=== PATIENT | female | born 1985 | race American Indian/Alaskan Native ===

== ENCOUNTER 2016-12-26 21:53 | Emergency (ER) | payer MEDICAID ==
[2016-12-26] MEDS ORDERED: DECADRON IV ONE (22:40)
[2016-12-26] MEDS ORDERED: BENADRYL IM ONE (22:40)
[2016-12-26] MEDS ORDERED: DECADRON ONE (22:42)
[2016-12-26] MEDS ORDERED: BENADRYL ONE (22:42)
[2016-12-26 22:52] VITALS: BP 120/82
[2016-12-26 23:19] LABS: Basophils % (Auto) 0.8 % (0.0-1.8); Eosinophils % (Auto) 1.8 % (0.0-4.3); Hematocrit 35.3 % (30.3-42.9); Mean Corpuscular HGB Conc 34 % (30-34); Mean Corpuscular Hemoglobin 31 pg (28-32); Mean Corpuscular Volume 91 fl (79-97); Platelet Count 228 K/mm3 (140-440); Red Blood Count 3.88 M/mm3 (3.65-5.03); Red Cell Distribution Width 13.3 % (13.2-15.2)
[2016-12-26 23:26] LABS: Urine Drugs of Abuse Note Disclamer
[2016-12-26 23:38] LABS: Anion Gap 14 mmol/L; BUN/Creatinine Ratio 38; Blood Urea Nitrogen 15 mg/dL (7-17); Calcium 8.7 mg/dL (8.4-10.2); Carbon Dioxide 26 mmol/L (22-30); Chloride 102.2 mmol/L (98-107); Glucose 103 mg/dL (65-100); Potassium 3.6 mmol/L (3.6-5.0); Sodium 139 mmol/L (137-145)
[2016-12-27 00:03] LABS: Bilirubin,Urine NEG (Negative); Blood,Urine SM (Negative); Ketones,Urine NEG (Negative); Leukocyte Esterase,Urine TR (Negative); Mucus,Urine 2+ /HPF; Nitrite,Urine NEG (Negative); Protein,Urine <15 mg/dL mg/dL (Negative)
== END 2016-12-26 22:52 | disposition left against medical advice (07) ==
LOC: ED 21:53
DX: G25.2 Other specified forms of tremor (principal); M24.9 Joint derangement, unspecified; Z53.21 Procedure and treatment not carried out due to patient leaving prior to being seen by health care provider
CPT/HCPCS: 36415; 80048; 80307; 81001; 84439; 84443; 85025; 96372; 96374; G0480; J1100; J1200; 80320

== ENCOUNTER 2019-04-11 00:45 | Observation (INO) | payer SELFPAY ==
--- NOTE | 2019-04-11 01:06 | Cat Scan Report ---
CT head without contrast INDICATION : MAIN: STROKE ALERT. LT SIDED WEAKNESS. SLURRED SPEECH. [phone]. Slurred speech, le ft-sided weakness TECHNIQUE: Axial imaging performed from the skull apex through the skull base without the use of con trast. All CT scans at this location are performed using CT dose reduction for ALARA by means of aut omated exposure control. COMPARISON: None FINDINGS: Parenchyma: No acute intracranial hemorrhage or parenchymal abnormality. Ventricles: Ventricles are normal in size and appear symmetric. Soft tissues: Soft tissues including the orbits appear normal. Bones: No acute osseous abnormality. Sinuses: Sinuses and mastoid air cells are clear. IMPRESSION: No acute abnormality. COMMUNICATION: Time of Communication (TESTER/LIFT TRUCKER/CDT): 12:01 AM Licensed Practitioner Receiving Report: Dr. Somers Signer Name: Gopal Mednia MD Signed: 04/11/2019 1:01 AM Workstation Name: [id number]
--- NOTE | 2019-04-11 01:17 | Emergency Department Report ---
HPI - General Time Seen by Provider: 04/11/19 00:47 - HPI HPI: 33-year-old -Algerian female presents to the emergency department via EMS as a code stroke. The patient has been having left-sided head, neck, arm and leg sharpshooting pains since about 2 PM this afternoon. She also complains of some numbness and weakness along this left side. She woke up this morning with a change in her voice that she says makes it hard to talk. Her significant other is at bedside as well and says that she had a left-sided facial droop earlier that he took a picture of. She has a past mental history of asthma and some type of nerve problem or disorder that she says is undiagnosed. She has a surgical history of tubal ligation as well as some type of pelvic procedure regarding the vessels in her pelvis due to "pelvic congestion." ED Past Medical Hx - Past Medical History Hx Hypertension: No Hx CVA: No Hx Heart Attack/AMI: No Hx Congestive Heart Failure: No Hx Diabetes: No Hx Deep Vein Thrombosis: No Hx Pulmonary Embolism: No Hx GERD: No Hx Liver Disease: No Hx Renal Disease: No Hx Sickle Cell Disease: No Hx Arthritis: No Hx Headaches / Migraines: No Hx Seizures: No Hx Kidney Stones: No Hx Psychiatric Treatment: No Hx Asthma: Yes Hx COPD: No Hx Tuberculosis: No Hx Dementia: No Hx HIV: No Additional medical history: "neuro problem" unsure of diagnosis - Surgical History Hx Coronary Stent: No Hx Open Heart Surgery: No Hx Pacemaker: No Hx Internal Defibrillator: No Hx Cholecystectomy: No Hx Appendectomy: No Hx Breast Surgery: No Additional Surgical History: 2011, tubal ligation - Social History Smoking Status: Never Smoker Substance Use Type: None - Medications Home Medications: Home Medications Medication Instructions Recorded Confirmed Last Taken Type Albuterol Sulfate [Proventil HFA] 1 - 2 puff IH Q4H PRN #1 hfa.aer.ad 07/04/14 07/15/15 Unknown Rx ED Review of Systems ROS: Stated complaint: POSS CVA Other details as noted in HPI Comment: All other systems reviewed and negative Constitutional: weakness. denies: chills, fever Eyes: denies: eye pain, vision change ENT: denies: ear pain, throat pain Respiratory: denies: cough, shortness of breath Cardiovascular: denies: chest pain, palpitations Gastrointestinal: denies: abdominal pain, vomiting Genitourinary: denies: dysuria, discharge Musculoskeletal: myalgia. denies: back pain, joint swelling Skin: denies: rash, lesions Neurological: headache, weakness, numbness Physical Exam - Physical Exam Physical Exam: GENERAL: The patient is well-developed well-nourished. HEENT: Normocephalic. Atraumatic. Patient has moist mucous membranes. EYES: Extraocular motions are intact. Pupils equal and reactive to light bilaterally. NECK: Supple. Trachea is midline. CHEST/LUNGS: Clear to auscultation. There is no respiratory distress noted. HEART/CARDIOVASCULAR: Regular. There is no tachycardia. There is no murmur. ABDOMEN: Abdomen is soft, nontender. Patient has normal bowel sounds. There is no abdominal distention. SKIN:Skin is warm and dry. . NEURO: The patient is awake, alert, and oriented. The patient is cooperative. The patient has no focal neurologic deficits. Patient has a weak raspy voice but otherwise there is no aphasia or dysarthria. Cranial nerves II through XII grossly intact. MUSCULOSKELETAL: There is no tenderness or deformity. There is no limitation range of motion. There is no evidence of acute injury. ED Course - Consultations Consultation #1: 04/11/19 03:49 This patient was seen by the telemedicine neurologist, Dr. De La O, as soon as she returned from having her CT head without contrast done. The neurologist gave her a NIH stroke scale of [address] angiography of the head and neck to be done. His further recommendations also include admission for MRI, neuro checks and further stroke workup. ED Medical Decision Making - Lab Data Result diagrams: 04/11/19 01:19 04/11/19 01:19 - EKG Data -: EKG Interpreted by Mi EKG shows normal: sinus rhythm, axis, intervals, QRS complexes, ST-T waves Rate: normal - EKG Data When compared to previous EKG there are: previous EKG unavailable Interpretation: normal EKG - Radiology Data Radiology results: report reviewed CT head without contrast INDICATION : MAIN: STROKE ALERT. LT SIDED WEAKNESS. SLURRED SPEECH. [phone]. Slurred speech, left-sided weakness TECHNIQUE: Axial imaging performed from the skull apex through the skull base without the use of contrast. All CT scans at this location are performed using CT dose reduction for ALARA by means of automated exposure control. COMPARISON: None FINDINGS: Parenchyma: No acute intracranial hemorrhage or parenchymal abnormality. Ventricles: Ventricles are normal in size and appear symmetric. Soft tissues: Soft tissues including the orbits appear normal. Bones: No acute osseous abnormality. Sinuses: Sinuses and mastoid air cells are clear. IMPRESSION: No acute abnormality. CTA head with and without IV contrast. CLINICAL HISTORY: Left-sided weakness. Technique: Multiple contiguous postcontrast CT images of the head were obtained at 0.63 mm intervals.3 plane MIP reconstructions were obtained. Precontrast localizing images were also performed. CT scans at this location are performed using the CT dose reduction for ALARA by means of automated exposure control. FINDINGS: No previous exams are available for comparison. The distal internal c arotid arteries demonstrate appropriate caliber without significant focal stenosis by NASCET criteria. The vertebral basilar system is unremarkable. The proximal cerebral arteries demonstrate appropriate caliber without evidence of large vessel occlusion. There is no clear CTA evidence of intracranial aneurysm. The dural venous sinuses opacify with contrast. IMPRESSION: There is no CTA evidence of significant stenosis involving intracranial vessels. CTA neck with and without contrast CLINICAL HISTORY: Left-sided weakness. Technique: Multiple contiguous postcontrast axial CT images of the neck were obtained at 0.63 mm intervals. 3 plane MIP reconstructions were produced. Precontrast localizing images were also performed. All CT scans at this location are performed using the CT dose re duction for ALARA by means of automated exposure control. FINDINGS: There is no significant stenosis involving carotid arteries by NASCET criteria. The carotid bifurcations are widely patent. Contrast is noted within the cervical venous plexus. However, the vertebral arteries also demonstrate appropriate caliber without significant focal narrowing. The mendenhall of carotid and vertebral arteries demonstrate fairly smooth contour without CT evidence of dissection. There is common origin of the brachiocephalic and left common carotid arteries which represents a developmental variant. The arch vessels are otherwise unremarkable. IMPRESSION: There is no CTA evidence of significant stenosis involving carotid or vertebral arteries by NASCET criteria. - Medical Decision Making This patient presents as a code stroke as she was complaining of headache with some left-sided body pain, numbness, previous slurred speech and facial asymmetry. However, at the time of my examination she does not have any obvious deficits. Upon arrival she immediately had a CT scan of the head without contrast does not show any bleed, shift, mass, ischemia, or any other acute process. Seen by telemedicine neurology who recommended CT angiography of the head and neck followed by admission for MRI and further stroke workup, unless the angiography studies show signs of a large vessel occlusion. Patient was given a NIH stroke scale of 0. CT angiography of the head and neck does not show any thrombus, occlusion, or any other acute process. Patient's labs have been unremarkable CBC, metabolic panel, TSH, blood alcohol level. Vital signs stable throughout her ED course. The patient will be admitted to the hospital for further evaluation and treatment and was accepted for admission by the hospitalist, Dr. Puckett. - Differential Diagnosis CVA, TIA, MS, complex migraine Critical Care Time: No Critical care attestation.: If time is entered above; I have spent that time in minutes in the direct care of this critically ill patient, excluding procedure time. ED Disposition Clinical Impression: Stroke-like symptoms Headache Qualifiers: Headache type: unspecified Headache chronicity pattern: unspecified pattern Intractability: not intractable Qualified Code(s): R51 - Headache Disposition: OP ADMIT IP TO THIS HOSP Is pt being admited?: Yes Condition: Fair Time of Disposition: 03:55
[2019-04-11 01:27] LABS: Basophils # (Auto) 0.1 K/mm3 (0.0-0.1); Basophils % (Auto) 1.3 % (0.0-1.8); Eosinophils # (Auto) 0.2 K/mm3 (0.0-0.4); Eosinophils % (Auto) 2.8 % (0.0-4.3); Hematocrit 33.5 % (30.3-42.9); Hemoglobin 11.3 gm/dl (10.1-14.3); Lymphocytes # (Auto) 2.2 K/mm3 (1.2-5.4); Lymphocytes % (Auto) 37.1 % (13.4-35.0); Mean Corpuscular HGB Conc 34 % (30-34); Mean Corpuscular Volume 89 fl (79-97); Monocytes # (Auto) 0.5 K/mm3 (0.0-0.8); Monocytes % (Auto) 8.7 % (0.0-7.3); Platelet Count 279 K/mm3 (140-440); Red Blood Count 3.76 M/mm3 (3.65-5.03)
[2019-04-11 01:35] LABS: BUN/Creatinine Ratio 16; Blood Urea Nitrogen 8 mg/dL (7-17); Calcium 9.2 mg/dL (8.4-10.2); Hemolysis Index 0
--- NOTE | 2019-04-11 01:38 | Emergency Department Report ---
HPI - General Chief Complaint: Neuro Symptoms/Deficit Time Seen by Provider: 04/11/19 00:47 - HPI HPI: [facility] Date of Service: 04/11/2019 00:23:28 Impression: RO Acute Ischemic Stroke Comments: The pateint was last normal at 1400, she started having excruciating and shooting pain down her left side. She is allergic to oxycodone she states. Mechanism of Stroke: Possible Thromboembolic Metrics: Last Known Well: 04/11/2019 14:00:00 [facility] Notification Time: 04/11/2019 00:22:57 Arrival Time: 04/11/2019 00:23:28 Stamp Time: 04/11/2019 00:23:28 Time First Login Attempt: 04/11/2019 00:30:00 Video Start Time: 04/11/2019 00:30:00 Symptoms: pain shot down her neck all the way down on left side, to middle finger. She could not speak NIHSS Start Assessment Time: 04/11/2019 00:53:56 Patient is not a candidate for tPA. Patient was not deemed candidate for tPA thrombolytics because of Last Well Known Above 4.5 Hours. Video End Time: 04/11/2019 01:39:44 CT head showed no acute hemorrhage or acute core infarct. Presentation is not suggestive of Large Vessel Occlusive disease. Advanced imaging was reviewed, No Indication of Large Vessel Occlusive Thrombus. Radiologist was called back for review of advanced imaging on 04/11/2019 01:39:45 ED Physician notified of diagnostic impression and management plan on 04/11/2019 00:58:25 Our recommendations are outlined below. Recommendations: Activate Stroke Protocol Admission/Order Set Stroke/Telemetry Floor Neuro Checks Bedside Swallow Eval DVT Prophylaxis IV Fluids, Normal Saline Head of Bed Below 30 Degrees Euglycemia and Avoid Hyperthermia (PRN Acetaminophen) Hold Antithrombotics for Now Recommended Scan: MRI Head with and Without Contrast Lipid Panel to Be Obtained, if Not Done in the Last Three Months Therapies: Physical Therapy, Occupational Therapy, Speech Therapy Assessment When Applicable Dysphaghia Screen: Swallow Evaluation, Bedside NPO Until Swallow Evaluation History of Present Illness: Patient is a 33 year old Female. Patient was brought by EMS for symptoms of pain shot down her neck all the way down on left side, to middle finger. She could not speak She could not speak, and she could not open her eyes. She took, nortriptyline,@ 937 and everything went to normal, then 11:00 CT head showed no acute hemorrhage or acute core infarct. Last seen normal was beyond 4.5 hours of presentation. There is no history of hemorrhagic complications or intracranial hemorrhage. There is no history of Recent Anticoagulants. There is no history of recent major surgery. There is no history of recent stroke. Examination: 1A: Level of Consciousness - Alert; keenly responsive + 0 1B: Ask Month and Age - Both Questions Right + 0 1C: Blink Eyes & Squeeze Hands - Performs Both Tasks + 0 2: Test Horizontal Extraocular Movements - Normal + 0 3: Test Visual Santos - No Visual Loss + 0 4: Test Facial Palsy (Use Grimace if Obtunded) - Normal symmetry + 0 5A: Test Left Arm Motor Drift - No Drift for 10 Seconds + 0 5B: Test Right Arm Motor Drift - No Drift for 10 Seconds + 0 6A: Test Left Leg Motor Drift - No Drift for 5 Seconds + 0 6B: Test Right Leg Motor Drift - No Drift for 5 Seconds + 0 7: Test Limb Ataxia (FNF/Heel-Palm) - No Ataxia + 0 8: Test Sensation - Normal; No sensory loss + 0 9: Test Language/Aphasia - Normal; No aphasia + 0 10: Test Dysarthria - Normal + 0 11: Test Extinction/Inattention - No abnormality + 0 NIHSS Score: 0 Patient was informed the Neurology Consult would happen via TeleHealth consult by way of interactive audio and video telecommunications and consented to receiving care in this manner. Due to the immediate potential for life-threatening deterioration due to underlying acute neurologic illness, I spent 35 minutes providing critical care. This time includes time for face to face visit via telemedicine, review of medical records, imaging studies and discussion of findings with providers, the patient and/or family. Dr Candido De La O [facility] Case [id number] ED Past Medical Hx - Past Medical History Hx Hypertension: No Hx CVA: No Hx Heart Attack/AMI: No Hx Congestive Heart Failure: No Hx Diabetes: No Hx Deep Vein Thrombosis: No Hx Pulmonary Embolism: No Hx GERD: No Hx Liver Disease: No Hx Renal Disease: No Hx Sickle Cell Disease: No Hx Arthritis: No Hx Headaches / Migraines: No Hx Seizures: No Hx Kidney Stones: No Hx Psychiatric Treatment: No Hx Asthma: Yes Hx COPD: No Hx Tuberculosis: No Hx Dementia: No Hx HIV: No Additional medical history: "neuro problem" unsure of diagnosis - Surgical History Hx Coronary Stent: No Hx Open Heart Surgery: No Hx Pacemaker: No Hx Internal Defibrillator: No Hx Cholecystectomy: No Hx Appendectomy: No Hx Breast Surgery: No Additional Surgical History: 2010, tubal ligation - Social History Smoking Status: Never Smoker Substance Use Type: None - Medications Home Medications: Home Medications Medication Instructions Recorded Confirmed Last Taken Type Albuterol Sulfate [Proventil HFA] 1 - 2 puff IH Q4H PRN #1 hfa.aer.ad 07/04/14 07/15/15 Unknown Rx ED Review of Systems ROS: Stated complaint: POSS CVA Other details as noted in HPI Constitutional: weakness. denies: chills, fever Eyes: denies: eye pain, vision change ENT: denies: ear pain, throat pain Respiratory: denies: cough, shortness of breath Cardiovascular: denies: chest pain, palpitations Gastrointestinal: denies: abdominal pain, vomiting Genitourinary: denies: dysuria, discharge Musculoskeletal: myalgia. denies: back pain, joint swelling Skin: denies: rash, lesions Neurological: headache, weakness, numbness Physical Exam - Physical Exam Vital Signs: Vital Signs 04/11/19 01:06 Temperature 98.1 F Pulse Rate 91 H Respiratory 18 Rate Blood Pressure 135/91 O2 Sat by Pulse 100 Oximetry ED Course Vital Signs 04/11/19 01:06 Temperature 98.1 F Pulse Rate 91 H Respiratory 18 Rate Blood Pressure 135/91 O2 Sat by Pulse 100 Oximetry ED Medical Decision Making - Lab Data Result diagrams: 04/11/19 01:19 04/11/19 01:19 Critical care attestation.: If time is entered above; I have spent that time in minutes in the direct care of this critically ill patient, excluding procedure time. ED Disposition Condition: Stable
[2019-04-11 01:40] LABS: INR 0.96 (0.87-1.13); Thrombin Time 15.5 Sec. (15.1-19.6)
[2019-04-11 01:41] LABS: Partial Thromboplastin Time 34.9 Sec. (24.2-36.6)
[2019-04-11] MEDS ORDERED: KETOROLAC 30 MG/1 ML INJ IV ONE (02:40)
--- NOTE | 2019-04-11 02:47 | Cat Scan Report ---
CTA neck with and without contrast CLINICAL HISTORY: Left-sided weakness. Technique: Multiple contiguous postcontrast axial CT images of the neck were obtained at 0.63 mm inte rvals. 3 plane MIP reconstructions were produced. Precontrast localizing images were also performed. All CT scans at this location are performed using the CT dose reduction for ALARA by means of automat ed exposure control. FINDINGS: There is no significant stenosis involving carotid arteries by NASCET criteria. The carotid bifurcations are widely patent. Contrast is noted within the cervical venous plexus. However, the vertebral arteries also demonstrate appropriate caliber without significant focal narrowing. The mendenhall of carotid and vertebral arteries demonstrate fairly smooth contour without CT evidence of dissection. There is common origin of the brachiocephalic and left common carotid arteries which represents a dev elopmental variant. The arch vessels are otherwise unremarkable. IMPRESSION: There is no CTA evidence of significant stenosis involving carotid or vertebral arteries by NASCET cr iteria. Signer Name: Joseluis Bah MD Signed: 04/11/2019 2:42 AM Workstation Name: [id number]
--- NOTE | 2019-04-11 02:52 | Cat Scan Report ---
CTA head with and without IV contrast. CLINICAL HISTORY: Left-sided weakness. Technique: Multiple contiguous postcontrast CT images of the head were obtained at 0.63 mm intervals. 3 plane MIP reconstructions were obtained. Precontrast localizing images were also performed. CT scan s at this location are performed using the CT dose reduction for ALARA by means of automated exposure control. FINDINGS: No previous exams are available for comparison. The distal internal carotid arteries demons trate appropriate caliber without significant focal stenosis by NASCET criteria. The vertebral basila r system is unremarkable. The proximal cerebral arteries demonstrate appropriate caliber without evid ence of large vessel occlusion. There is no clear CTA evidence of intracranial aneurysm. The dural ve nous sinuses opacify with contrast. IMPRESSION: There is no CTA evidence of significant stenosis involving intracranial vessels. Signer Name: Joseluis Bah MD Signed: 04/11/2019 2:48 AM Workstation Name: [id number]
[2019-04-11] MEDS ORDERED: ONDANSETRON 4 MG/2 ML INJ IV PRN (03:38)
[2019-04-11] MEDS ORDERED: METOCLOPRAMIDE 10 MG TAB PO PRN (03:38)
[2019-04-11] MEDS ORDERED: MAGNESIUM HYDROXIDE (MOM) ORAL LIQD UDC PO PRN (03:38)
[2019-04-11] MEDS ORDERED: IPRATROPIUM/ALBUTEROL SULFATE 3 ML AMPUL.NEB IH PRN (03:38)
--- NOTE | 2019-04-11 03:44 | History and Physical Report ---
History of Present Illness History of present illness: 33-year-old male with a history of asthma, neuropathy comes to emergency room because today she developed a headache which is frontal in nature, dull, constant, no radiation, intensity 5/10. She also admits to feeling dizzy and nauseated, later on she developed left side numbness intermittently lasted for 15 minutes. She has neuropathy of the left leg, states that her left leg numbness is worse. Denies any history of migraine .Review of systems Constitutional: no weight loss, fever, chills Ears, eyes, nose, mouth and throat: no nasal congestion, no nasal discharge, no sinus pressure, no vision change, no red eye. Neck: No neck pain or rigidity. Cardiovascular: no palpitations Respiratory: No cough, shortness of breath Gastrointestinal: no abdominal pain hematochezia Genitourinary : no frequency , no hematuria Musculoskeletal: no joint swelling or muscle ache Integumentary: no rash, no pruritis Neurological: no parathesias, no numbness, no focal weakness Endocrine: no cold or heat intolerance, no polyuria or polydipsia Hematologic/Lymphatic: no easy bruising, no easy bleeding, no gland swelling Allergic/Immunologic: no urticaria, no angioedema. PAST MEDICAL HISTORY: Asthma, neuropathy PAST SURGICAL HISTORY: , tubal ligation SOCIAL HISTORY: No alcohol, no drugs, no tobacco Y HISTORY: Hypertension Medications and Allergies Allergies Allergy/AdvReac Type Severity Reaction Status Date / Time oxycodone HCl [From Percocet] Allergy Swelling Verified 04/01/13 20:46 Home Medications Medication Instructions Recorded Confirmed Last Taken Type Albuterol Sulfate [Proventil HFA] 1 - 2 puff IH Q4H PRN #1 hfa.aer.ad 07/04/14 07/15/15 Unknown Rx Exam - Physical Exam Narrative exam: Gen. appearance: Patient lying in bed, no apparent distress HEENT: Normocephalic, atraumatic, pupils equally round and reactive to light, eyes are , extraocular movement intact, and no sclericterus,. No JVD or thyromegaly or nodule,neck supple, no carotid bruit ,mucous membranes moist, no exudate or erythema Heart: S1, S2, regular rate and rhythm Lungs:Wheezing bilaterally, breathing comfortable Abdomen: Positive bowel sounds, non-tender, nondistended, no organomegaly Extremity:no edema cyanosis, clubbing Skin: no rash, dry, warm Neuro: Cranial nerves 2-12 intact, motor and decreased sensory on the left - Constitutional Vitals: Temp Pulse Resp BP Pulse Ox 98.1 F 91 H 16 135/91 100 04/11/19 01:06 04/11/19 01:06 04/11/19 01:15 04/11/19 01:06 04/11/19 01:06 Results - Labs CBC & Chem 7: 04/11/19 01:19 04/11/19 01:19 Labs: Abnormal lab results 04/11/19 04/11/19 Range/Units 01:19 01:19 Lymph % (Auto) 37.1 H (13.4-35.0) % Forrest % (Auto) 8.7 H (0.0-7.3) % Creatinine 0.5 L (0.7-1.2) mg/dL Glucose 120 H (65-100) mg/dL - Imaging and Cardiology CT Scan - head: report reviewed Assessment and Plan CT of the head and neck reviewed Assessment Left side paresthesia Obtain MRI of the head, do neurochecks Started aspirin, statin, consult neurology Asthma: Stable DVT prophylaxis
[2019-04-11] MEDS ORDERED: ALBUTEROL 2.5 MG/3 ML NEBU IH PRN (03:51)
[2019-04-11 04:26] LABS: Amphetamine Screen,Urine PRESUMPTIVE NEGATIVE; Benzodiazepines Screen,Urine PRESUMPTIVE NEGATIVE; Cannabinoid Screen,Urine PRESUMPTIVE NEGATIVE; Cocaine Screen,Urine PRESUMPTIVE NEGATIVE; Methadone Screen,Urine PRESUMPTIVE NEGATIVE; Opiate Screen,Urine PRESUMPTIVE NEGATIVE
--- NOTE | 2019-04-11 08:46 | Progress Note ---
Assessment and Plan Assessment and plan: Patient is a 33-year-old male with a history of asthma, neuropathy comes to emergency room because today she developed a headache which is frontal in nature, dull, constant, no radiation, intensity 5/10. She also admits to feeling dizzy and nauseated, later on she developed left side numbness intermittently lasted for 15 minutes. She has neuropathy of the left leg, states that her left leg numbness is worse. When I attempted to ambulate patient she was unable to even slide to the edge of the bed. He efforts were less than optimal. * CT of the head and neck reviewed Left side paresthesia: Obtain MRI of the head, do neurochecks, Started aspirin, statin, consulted neurology Asthma: Stable, treat with prn nebs Functional quadriplegia, I believe this is acute on chronic, she is being worked up at [place] for spine problem and that is usually where she goes: Records from [place] would be most helpful but unlikely to come: consult PT, no need to consult Ortho because he does not specialize in spinal conditions. DVT prophylaxis: sq lovenox Disposition: continue inpatient care, if MRI brain negative then d/c home and return to [place] outpatient Neurology clinic. History Interval history: Patient was seen and examined. Follow-up on current diagnosis. Overnight uneventful as no events directly reported to me. Patient denies any chest pain, shortness breath, nausea/vomiting or severe headaches. Imaging, nursing note, chart, labs and old chart reviewed. Discussed with patient. Hospitalist Physical - Physical exam Narrative exam: Gen: WDWN, NAD, Awake, Alert, Orientated x 3 HEENT: NCAT, EOMI, PERRL, OP Clear Neck: supple, no adenopathy, no thyromegaly, no JVD CVS/Heart: RRR, normal S1S2, pulses present bilaterally Chest/Lungs: CTA B, Symmetrical chest expansion, good air entry bilaterally GI/Abdomen: soft, NTND, good bowel sounds, no guarding or rebound /Bladder: no suprapubic tenderness, no CVA or paraspinal tenderness Extermity/Skin: no c/c/e, no obvious rash MSK: FROM x 3, able to move left side Neuro: CN 2-12 grossly intact, no new focal deficits Psych: calm - Constitutional Vitals: Temp Pulse Resp BP Pulse Ox 98.5 F 91 H 18 104/69 98 04/11/19 08:40 04/11/19 08:40 04/11/19 08:40 04/11/19 08:40 04/11/19 08:40 Results - Labs CBC & Chem 7: 04/11/19 01:19 04/11/19 01:19 Labs: Laboratory Last Values WBC 5.8 K/mm3 (4.5-11.0) 04/11/19 01:19 RBC 3.76 M/mm3 (3.65-5.03) 04/11/19 01:19 Hgb 11.3 gm/dl (10.1-14.3) 04/11/19 01:19 Hct 33.5 % (30.3-42.9) 04/11/19 01:19 MCV 89 fl (79-97) 04/11/19 01:19 MCH 30 pg (28-32) 04/11/19 01:19 MCHC 34 % (30-34) 04/11/19 01:19 RDW 14.0 % (13.2-15.2) 04/11/19 01:19 Plt Count 279 K/mm3 (140-440) 04/11/19 01:19 Lymph % (Auto) 37.1 % (13.4-35.0) H 04/11/19 01:19 [place] % (Auto) 8.7 % (0.0-7.3) H 04/11/19 01:19 Eos % (Auto) 2.8 % (0.0-4.3) 04/11/19 01:19 Baso % (Auto) 1.3 % (0.0-1.8) 04/11/19 01:19 Lymph # 2.2 K/mm3 (1.2-5.4) 04/11/19 01:19 [place] # 0.5 K/mm3 (0.0-0.8) 04/11/19 01:19 Eos # 0.2 K/mm3 (0.0-0.4) 04/11/19 01:19 Baso # 0.1 K/mm3 (0.0-0.1) 04/11/19 01:19 Seg Neutrophils % 50.1 % (40.0-70.0) 04/11/19 01:19 Seg Neutrophils # 2.9 K/mm3 (1.8-7.7) 04/11/19 01:19 PT 12.9 Sec. (12.2-14.9) 04/11/19 01:19 INR 0.96 (0.87-1.13) 04/11/19 01:19 APTT 34.9 Sec. (24.2-36.6) 04/11/19 01:19 Thrombin Time 15.5 Sec. (15.1-19.6) 04/11/19 01:19 Sodium 139 mmol/L (137-145) 04/11/19 01:19 Potassium 3.9 mmol/L (3.6-5.0) 04/11/19 01:19 Chloride 103.3 mmol/L (98-107) 04/11/19 01:19 Carbon Dioxide 27 mmol/L (22-30) 04/11/19 01:19 Anion Gap 13 mmol/L 04/11/19 01:19 BUN 8 mg/dL (7-17) 04/11/19 01:19 Creatinine 0.5 mg/dL (0.7-1.2) L 04/11/19 01:19 Estimated GFR > 60 ml/min 04/11/19 01:19 BUN/Creatinine Ratio 16 % 04/11/19 01:19 Glucose 120 mg/dL (65-100) H 04/11/19 01:19 Calcium 9.2 mg/dL (8.4-10.2) 04/11/19 01:19 Troponin T < 0.010 ng/mL (0.00-0.029) 04/11/19 01:19 TSH 3.980 mlU/mL (0.270-4.200) 04/11/19 01:19 HCG, Qual Negative (Negative) 04/11/19 01:19 Urine Opiates Screen Presumptive negative 04/11/19 Unknown Urine Methadone Screen Presumptive negative 04/11/19 Unknown Ur Barbiturates Screen Presumptive negative 04/11/19 Unknown Ur Phencyclidine Scrn Presumptive negative 04/11/19 Unknown Ur Amphetamines Screen Presumptive negative 04/11/19 Unknown U Benzodiazepines Scrn Presumptive negative 04/11/19 Unknown Urine Cocaine Screen Presumptive negative 04/11/19 Unknown U Marijuana (THC) Screen Presumptive negative 04/11/19 Unknown Drugs of Abuse Note Disclamer 04/11/19 Unknown Plasma/Serum Alcohol < 0.01 % (0-0.07) 04/11/19 01:19 Active Medications - Current Medications Current Medications: Generic Name Dose Route Start Last Admin Trade Name Freq PRN Reason Stop Dose Admin Acetaminophen 650 mg 04/11/19 03:38 Tylenol PO Q4H PRN Pain, Mild (1-3) Albuterol 2.5 mg 04/11/19 03:51 Proventil IH Q4HRT PRN Wheezing Aspirin 325 mg 04/11/19 10:00 Aspirin PO QDAY ANGELIQUE Atorvastatin Calcium 40 mg 04/11/19 22:00 Lipitor PO QHS ANGELIQUE Bisacodyl 10 mg 04/11/19 03:38 Dulcolax SC QDAY PRN Constipation Enoxaparin Sodium 40 mg 04/11/19 10:00 Enoxaparin SUB-Q QDAY@1000 [facility] Magnesium Hydroxide 30 ml 04/11/19 03:38 Milk Of Magnesia PO Q4H PRN Constipation Metoclopramide HCl 10 mg 04/11/19 03:38 Reglan PO Q6H PRN Nausea And Vomiting Ondansetron HCl 4 mg 04/11/19 03:38 Zofran IV Q8H PRN Nausea And Vomiting Sodium Chloride 10 ml 04/11/19 03:38 Sodium Chloride Flush Syringe 10 Ml IV PRN PRN LINE FLUSH
[2019-04-11] MEDS ORDERED: ENOXAPARIN 30 MG/0.3 ML INJ SUB-Q SCH (10:00)
--- NOTE | 2019-04-11 13:12 | Progress Note ---
Subjective Date of service: 04/11/19 Interval history: sofía seen and assessed she is going to neurology clinic at [place] has been on pamelor yesterday had spells that sounds like syncope but possible seizure sensory symptoms sound like could be MS will assess further Objective - Vital Sign Vital Signs - 12hr 04/11/19 04/11/19 04/11/19 01:15 01:16 01:30 Temperature Pulse Rate 86 86 Respiratory 16 23 25 H Rate Blood Pressure 135/91 116/74 O2 Sat by Pulse 100 Oximetry 04/11/19 04/11/19 04/11/19 02:09 02:15 02:31 Temperature Pulse Rate 91 H 86 82 Respiratory 21 20 19 Rate Blood Pressure 116/74 112/74 129/84 O2 Sat by Pulse 100 98 99 Oximetry 04/11/19 04/11/19 04/11/19 02:45 03:01 03:15 Temperature Pulse Rate 86 87 82 Respiratory 21 21 20 Rate Blood Pressure 122/84 117/79 122/80 O2 Sat by Pulse 99 99 99 Oximetry 04/11/19 04/11/19 04/11/19 03:30 03:53 04:01 Temperature Pulse Rate 102 H 92 H Respiratory 14 15 Rate Blood Pressure 122/82 122/80 127/82 O2 Sat by Pulse 100 100 100 Oximetry 04/11/19 04/11/19 04/11/19 04:15 04:31 04:45 Temperature Pulse Rate 87 80 89 Respiratory 21 20 20 Rate Blood Pressure 121/79 129/85 117/79 O2 Sat by Pulse 100 100 Oximetry 04/11/19 04/11/19 04/11/19 05:01 05:11 05:21 Temperature Pulse Rate 87 85 81 Respiratory 21 20 20 Rate Blood Pressure 113/77 121/79 125/82 O2 Sat by Pulse 100 100 100 Oximetry 04/11/19 04/11/19 04/11/19 05:30 05:41 08:40 Temperature 98.5 F Pulse Rate 80 83 91 H Respiratory 19 20 18 Rate Blood Pressure 120/74 120/74 104/69 O2 Sat by Pulse 99 100 98 Oximetry 04/11/19 04/11/19 10:06 11:51 Temperature Pulse Rate 91 H Respiratory Rate Blood Pressure O2 Sat by Pulse 99 Oximetry - Laboratory Findings CBC and BMP: 04/11/19 01:19 04/11/19 01:19 Abnormal Lab Findings: Abnormal Labs 04/11/19 04/11/19 01:19 01:19 Lymph % (Auto) 37.1 H [place] % (Auto) 8.7 H Creatinine 0.5 L Glucose 120 H
[2019-04-11] MEDS: ENOXAPARIN 40 MG/0.4 ML INJ SUB-Q SCH (14:00)
[2019-04-11] MEDS: ASPIRIN 325 MG TAB PO SCH (14:00)
[2019-04-11] MEDS: ACETAMINOPHEN 325 MG TAB PO PRN ×2 (16:59→21:52)
[2019-04-12] MEDS: ACETAMINOPHEN 325 MG TAB PO PRN (05:39)
[2019-04-12 05:54] LABS: Chol/HDL Ratio 4.28 %
[2019-04-12] MEDS: ENOXAPARIN 40 MG/0.4 ML INJ SUB-Q SCH (11:55)
[2019-04-12] MEDS: ASPIRIN 325 MG TAB PO SCH (11:55)
--- NOTE | 2019-04-12 15:16 | Discharge Summary ---
Providers - Providers Date of Admission: 04/11/19 03:39 Date of discharge: 04/12/19 Attending physician: GABRIELA RIVERA 04/11/19 Consult to Physician [CONS] Routine Comment: Consulting Provider: DANIEL MARTINEZ Physician Instructions: Reason For Exam: paresthesia 04/11/19 03:39 Occupational Therapy Evaluate and Treat [CONS] Routine Comment: Reason For Exam: Neuro deficits Physical Therapy Evaluation and Treat [CONS] Routine Comment: Reason For Exam: Neuro deficits Primary care physician: TENT FINISHER Hospitalization Condition: Stable Hospital course: Patient is a 33-year-old male with a history of asthma, neuropathy comes to emergency room because today she developed a headache which is frontal in nature, dull, constant, no radiation, intensity 5/10. She also admits to feeling dizzy and nauseated, later on she developed left side numbness intermittently lasted for 15 minutes. She has neuropathy of the left leg, states that her left leg numbness is worse. When I attempted to ambulate patient she was unable to even slide to the edge of the bed. He efforts were less than optimal. * CT of the head and neck reviewed Left side paresthesia unlikely CVA/TIA: unable to get MRI due to coil Asthma: Stable, treat with prn nebs Functional quadriplegia, I believe this is acute on chronic, she is being worked up at [place] for spine problem and that is usually where she goes: Records from [place] would be most helpful but unlikely to come: consult PT, no need to consult Ortho because he does not specialize in spinal conditions. DVT prophylaxis: sq lovenox Disposition: home, unable to get MRI due to coils in hip. PT evaluated, home with follow up to [place] recommended Disposition: DC- TO HOME OR SELFCARE Time spent for discharge: 35 minutes Core Measure Documentation - Palliative Care Palliative Care/ Comfort Measures: Not Applicable - Core Measures Any of the following diagnoses?: none - VTE Discharge Requirements Deep Vein Thrombosis/Pulmonary Embolism Present on Admission: No Has pt received <5 days of overlap therapy or INR<2.0: No Anticoagulant overlap therapy prescribed at discharge: No Contraindication No Overlap Therapy order at DC: Not Indicated Exam - Physical Exam Narrative exam: Gen: WDWN, NAD, Awake, Alert, Orientated x 3 HEENT: NCAT, EOMI, PERRL, OP Clear Neck: supple, no adenopathy, no thyromegaly, no JVD CVS/Heart: RRR, normal S1S2, pulses present bilaterally Chest/Lungs: CTA B, Symmetrical chest expansion, good air entry bilaterally GI/Abdomen: soft, NTND, good bowel sounds, no guarding or rebound /Bladder: no suprapubic tenderness, no CVA or paraspinal tenderness Extermity/Skin: no c/c/e, no obvious rash MSK: FROM x 3, able to move left side 4/5 Neuro: CN 2-12 grossly intact, no new focal deficits Psych: calm - Constitutional Vitals: Temp Pulse Resp BP Pulse Ox 98.4 F 90 18 103/68 99 04/12/19 11:17 04/12/19 11:17 04/12/19 11:17 04/12/19 11:17 04/12/19 11:17 Plan Activity: up only with assistance, fall precautions, other (no strenous activity ) Diet: regular Additional Instructions: Call for [place] [facility] for first available appointment Follow up with: ORTEGA SAVAGE MD [Primary Care Provider] - 3-5 Days Forms: Accompanied Note
[2019-04-12 17:53] VITALS: BP 103/61
== END 2019-04-12 18:04 | disposition home or self-care (01) ==
LOC: ED 00:45 → 4A 03:39
PROVIDERS: ADMIT Internal Medicine; ATTEND Internal Medicine
DX: R20.2 Paresthesia of skin (principal); R42 Dizziness and giddiness; R11.0 Nausea; J45.909 Unspecified asthma, uncomplicated; G62.9 Polyneuropathy, unspecified; R51 Headache; Z98.51 Tubal ligation status; Z79.899 Other long term (current) drug therapy; Z88.5 Allergy status to narcotic agent
CPT/HCPCS: 36415; 70450; 70496; 70498; 80048; 80061; 80307; 84443; 84484; 84703; 85025; 85610; 85670; 85730; 93005; 93010; 96372; 96374; 97116; 97161; 97165; 99291; A9270; G0378; J1650; J1885; Q9967; 80320; G0480